=== PATIENT | female | born 1975 | race Caucasian/White ===

== ENCOUNTER 2016-06-18 08:04 | Day surgery (SDC) | payer OTHER ==
[2016-06-17 12:01] VITALS: BMI 24.4
[~2016-06-18] VITALS: Ht 167.6 cm; Wt 70.0 kg
[2016-06-18] VITALS (11 sets, daily range): BP systolic 109–115; BP diastolic 60–75; PULSE 62–83; RESP 14–16; Ht 167.6 cm; Wt 70.0 kg
[~2016-06-18 08:04] MED LIST: CEFAZOLIN 1 GM/50 ML (PMX) 50 ML IVPB SCH; LACTATED RINGER'S 1,000 ML IV SCH
[2016-06-18] MEDS ORDERED: ASPI81TA3 PO (08:59)
--- NOTE | 2016-06-18 10:10 | HPN ---
Date/Time of Note Date/Time of Note DATE: 06/18/16 TIME: 10:07 Interval H&P Admission Note Pt. seen H&P reviewed: No system changes NANDO MONCADA DPM Jun 18, 2016 10:10
[2016-06-18] MEDS ORDERED: DEXAMETHASONE 4 MG/ML 1 ML INJ ONE (10:30)
[2016-06-18] MEDS ORDERED: BUPIVACAINE 0.5% (SDV) 30 ML INJ ONE (10:30)
[2016-06-18] MEDS ORDERED: LIDOCAINE 2% (SDV) 5 ML INJ ONE (10:41)
[2016-06-18] MEDS ORDERED: MEPERIDINE 100 MG INJ ONE (10:41)
[2016-06-18] MEDS ORDERED: PROPOFOL 20 ML ONE (10:41)
[2016-06-18] MEDS ORDERED: DIPHENHYDRAMINE 50 MG INJ IV PRN (11:00)
[2016-06-18] MEDS ORDERED: FENTAnyl 50 MCG/ML VIAL IV PRN ×2 (11:00)
[2016-06-18] MEDS ORDERED: METOCLOPRAMIDE 10 MG INJ IV PRN (11:00)
[2016-06-18] MEDS ORDERED: MEPERIDINE 25 MG INJ IV PRN (11:00)
[2016-06-18] MEDS ORDERED: ONDANSETRON 4 MG INJ IV PRN (11:00)
[2016-06-18] MEDS ORDERED: MIDAZOLAM 1 MG/ML 2 ML INJ IV PRN (11:00)
[2016-06-18] MEDS ORDERED: HYDROmorphONE (0.2 MG/ML) 10ML SYG IV PRN ×2 (11:00)
[2016-06-18] MEDS ORDERED: CEFAZOLIN 1 GM INJ ONE (11:10)
[2016-06-18] MEDS ORDERED: METOCLOPRAMIDE 10 MG INJ ONE (11:10)
[2016-06-18] MEDS ORDERED: ONDANSETRON 4 MG INJ ONE (11:10)
--- NOTE | 2016-06-18 12:22 | OPR ---
DATE OF OPERATION: 06/18/2016 PREOPERATIVE DIAGNOSIS: Left foot bunion deformity. POSTOPERATIVE DIAGNOSIS: Left foot bunion deformity. ANESTHESIA: General. OPERATION: The patient was brought into the OR and approximately 10 mL of 0.5% plain Marcaine was u tilized circumferentially around the first metatarsophalangeal joint of the left foot. After anesth esia was achieved, the area was prepped and draped in usual sterile fashion. The foot and ankle was exsanguinated with Esmarch and tourniquet inflated to approximately 250 mmHg. Attention was then r edirected to the medial aspect of the first metatarsophalangeal joint region. Utilizing a #15 blade , an approximately 5 cm incision was performed. Sharp and blunt dissection were achieved with care taken to retract all nervous tissue and ligate any bleeding vessels. Dissection was continued down to the capsular region where a linear capsulotomy was performed. A yanes elevator was then utilized t o free the capsular tissue from the dorsal aspect of the first metatarsal and medially, as well as a round the base and mid area of the proximal phalanx. There was an exostosis noted on the dorsal asp ect of the bunion area or the head of the first metatarsal. This was removed in total with a sagitt al saw. Reciprocating rasp was then utilized to smooth down the medial aspect as well as the dorsal aspect. The joint space was inspected and there was no arthritic changes noted centrally. There w as good movement of the proximal phalanx on the head of the first metatarsal. Attention was then directed to the proximal phalanx where a modified Tai type osteotomy was perform ed utilizing the sagittal saw. The [facility] technique using the fusiform staple kit was then utilized. Care was taken to drill apertures on both the distal and the proximal aspect of the osteo christi site. The staple was then chosen. It was an 8 mm x 8 mm staple. The staple was inserted into the aperture and excellent closure of the osteotomy was noted with good compression. The area was then copiously lavaged with antibiotic solution. Attention was then directed to the capsular tissue where a capsulorrhaphy was performed. Redundant capsular tissue was removed and the capsule was then coapted with 2-0 Vicryl suture and the subcutan eous tissue with 3-0 Vicryl suture. It should also be noted that Actishield amniotic barrier membra ne was utilized for an anti-inflammatory effect and increase healing in the area. The skin was then closed with the 3-0 nylon suture. There was approximately 8 mL of 0.5% plain Marcaine used postope ratively. Marcaine was plain. The area was then dressed with Xeroform, 4 x 4's, rolled gauze and C oban. The tourniquet was deflated and excellent refilling was noted and hyperemia was noted to all the digits of the left foot. This patient tolerated the procedure well and left the OR in stable co ndition. Dictated By: NANDO MONCADA MD RS/JYOTI Conf#: [id number] DID#: [id number]
--- NOTE | 2016-06-18 13:24 | RADRPT ---
PROCEDURE: XR Left Foot CLINICAL INDICATION: Postop TECHNIQUE: AP and lateral views were obtained. COMPARISON: 07/23/2013 FINDINGS: Osseous structures: Since the previous study, the patient has undergone an osteotomy at the distal p roximal phalanx of the left great toe internally fixed by means of a U-shaped nail. No significant callus formation is evident. There is again evidence of a previous bunionectomy. The remaining oss eous elements remain intact. Joint spaces: are well maintained, with no significant spurring, erosion or joint effusion evident. Soft tissues: appear unremarkable. IMPRESSION: 1. Since the previous study of 07/23/2013, the patient has undergone a an osteotomy seen transverse ly at the distal aspect of the proximal phalanx of the left great toe internally fixed by means of U shape nail. No callus formation is evident. 2. Again there is evidence of a previous bunionectomy. Physician Edvin Date Time Electronically viewed and signed by Physician Edvin on 06/18/2016 13:24 /
== END 2016-06-18 14:33 | disposition home or self-care (01) ==
LOC: SDS 08:04
PROVIDERS: ATTEND Podiatrist Foot & Ankle Surgery
DX: M21.612 Bunion of left foot (principal)
CPT/HCPCS: 28298; 73620; 88304; 88311; J0690; J1100; J2175; J2405; J2765; Z7512; Z7610

== ENCOUNTER 2016-11-20 07:15 | Day surgery (SDC) | payer OTHER ==
[~2016-11-20] VITALS: Ht 167.6 cm; Wt 69.5 kg
[~2016-11-20 07:15] MED LIST changes: +ASPI81TA3 PO; -CEFAZOLIN 1 GM/50 ML (PMX) 50 ML IVPB SCH; -LACTATED RINGER'S 1,000 ML IV SCH
[2016-11-20 07:40] VITALS: Ht 167.6 cm; Wt 69.5 kg
[2016-11-20] MEDS ORDERED: LIDOCAINE 4% SOLUTION 50 ML BTL ONE (07:56)
[2016-11-20 08:07] VITALS: BP 107/69; PULSE 63; RESP 21
--- NOTE | 2016-11-20 08:30 | OPPN ---
Date/Time of Note Date/Time of Note DATE: 11/20/16 TIME: 08:26 Proc Note GI Procedure date: Nov 20, 2016 Pre-procedure Diagnosis History of a chronic abdominal discomfort unresponsive to routine therapy Post-procedure Diagnosis Postop diagnosis mildly diffuse gastritis and mild reflux esophagitis Operation Performed EGD Surgeon: JANICE JUSTICE MD Estimated blood loss: none Transfusion Required: no Specimens Biopsies from the stomach and from the esophagus Grafts/Implants: none Complications: no Pt Condition post procedure: stable Indications Rule out esophagitis rule out peptic ulcer disease Operative\Procedure Findings Patient was put on left lateral position after informed written consent is obtained 4 mg Versed 50 mcg of fentanyl was given as intravenous anesthesia When the patient become somnolent Olympus video upper endoscope was introduced into the oropharynx then into the esophagus and then into the stomach. Esophagus showed evidence of a mild erythema just above the GE junction and also some concentric rings were noted in the esophagus although it it is appeared upon insufflation with air. At this time biopsies were obtained in random fashion from the esophagus to rule out eosinophilic esophagitis. Scope of the stent was advanced into the stomach stomach showed several areas of erythema in a patchy distribution consistent with a mild gastritis biopsies were done from the antrum the lesser curvature in the fundus to rule out H. pylori infection. Scope with the stem was advanced into the duodenum The duodenum showed normal mucosal pattern up to the end of the third portion Potassium was withdrawn no additional abnormalities detected and the procedure was terminated plan recommend omeprazole 40 mg a day for 2 months me and will wait for the pathology report Please send copy to my office and also to Dr. Genet Panchal in the [facility]; Dr. Justice and JANICE Wilson MD Nov 20, 2016 08:30
[2016-11-20] MEDS ORDERED: FENTAnyl 50 MCG/ML VIAL ONE (08:41)
[2016-11-20] MEDS ORDERED: MIDAZOLAM 1 MG/ML 2 ML INJ ONE ×2 (08:41)
[2016-11-20 08:52] VITALS: BP 116/75; PULSE 62; RESP 20
== END 2016-11-20 09:00 | disposition home or self-care (01) ==
LOC: GIL 07:15
PROVIDERS: ATTEND Internal Medicine Gastroenterology
DX: K29.50 Unspecified chronic gastritis without bleeding (principal); K21.0 Gastro-esophageal reflux disease with esophagitis
CPT/HCPCS: 43239; 84703; J2250; J3010; Z7610

== ENCOUNTER 2018-06-21 10:18 | Emergency (ER) | payer OTHER ==
[~2018-06-21] VITALS: Ht 162.6 cm; Wt 74.0 kg
[~2018-06-21 10:18] MED LIST changes: +ASPI-903 PO; -ASPI81TA3 PO
[2018-06-21 10:32] VITALS: BP 132/72; PULSE 72; RESP 18; Ht 162.6 cm; Wt 74.0 kg
== END 2018-06-21 14:36 | disposition left against medical advice (07) ==
LOC: FTE 10:18
DX: Z53.21 Procedure and treatment not carried out due to patient leaving prior to being seen by health care provider (principal)